=== PATIENT | male | born 1980 | race Caucasian/White ===

== ENCOUNTER 2019-09-30 10:52 | Emergency (ER) | payer OTHER | END 2019-09-30 11:02 | disposition left against medical advice (07) | LOC: ERS 10:52 | DX: Z53.21 Procedure and treatment not carried out due to patient leaving prior to being seen by health care provider (principal) ==

== ENCOUNTER 2022-05-30 21:56 | Emergency (ER) | payer BC ==
[2022-05-30] MEDS ORDERED: Boostrix 0.5 ML (Tdap) VIAL (>/=7 yrs of age) ONE (22:17)
[2022-05-30] MEDS ORDERED: Lidocaine 1% w/Epinephrine 1:100K 20 ML VIAL ONE (22:17)
[2022-05-30] MEDS ORDERED: Triple Antibiotic Oint 1 GM Packet ONE (23:28)
== END 2022-05-30 23:31 | disposition home or self-care (01) ==
LOC: ERS 21:56
DX: S61.412A Laceration without foreign body of left hand, initial encounter (principal); I10 Essential (primary) hypertension; Z23 Encounter for immunization; W26.0XXA Contact with knife, initial encounter
CPT/HCPCS: 12002; 90471; 90715

== ENCOUNTER 2022-12-21 08:42 | Emergency (ER) | payer BC ==
[2022-12-21] MEDS ORDERED: Dicyclomine 20 MG/2 ML VIAL ONE (09:23)
== END 2022-12-21 09:40 | disposition home or self-care (01) ==
LOC: ERS 08:42
DX: K59.00 Constipation, unspecified (principal)
CPT/HCPCS: 96372; 99283